=== PATIENT | male | born 1970 | race Caucasian/White ===

== ENCOUNTER → 2018-11-08 | Day surgery (SDC) | payer OTHER ==
[~2018-11-08] MED LIST: FENTANYL CITRATE/PF 100MCG/2 ML INJ ONE; LISINOPRIL10 MG PO; MIDAZOLAM HCL 2 MG/2 ML VIAL ONE; PROPOFOL IV EMULSION 10 MG/ML 50 ML VIAL ONE
--- OUTSIDE RECORDS SUMMARY | 2018-11-08 06:08 | XMS REPORT | Encounter Summary ---
Author Organization Unknown Address [address] [place] [id number] Phone [phone] Reason for Visit Medical Complaint Instructions 1. Influenza due to Influenza virus, type B rapid flu (A+B) Tamiflu 75 mg capsule 2. Elevated blood-pressure reading without diagnosis of hypertension Discussion Note Pt is in NAD; Verbalizes understanding of all instructions with no questions at this time. Patient educational handouts: No information available. Plan of Care Patient Instructions Alternate with Ibuprofen and acetaminophen every 4hrs as needed for body aches/fever Start Tamiflu and take as directed. Take Bromfed for cough as directed. Start over the counter antihistamine for runny nose and watery eyes. Proper hydration and rest. Return to school/work of fever free for 24 hrs. Recommend monitor BP at home and document, bring BP log to PCP for review. Recommend follow a low sodium diet and exercise 30-45 mins/d 3-4 days a week Take medications as prescribed. Return to clinic or f/u with your PCP within 2-3 days if symptoms worsen as discussed. Reminders Provider Appointments None recorded. Lab Rapid Flu (A+B) 10/02/2016 [facility] Referral None recorded. Procedures None recorded. Surgeries None recorded. Imaging None recorded. Medications Name Start Date lisinopril 40 mg tablet Tamiflu 75 mg capsule Take 1 capsule twice a day by oral route as directed for 5 days. zolpidem 10 mg tablet Medications Administered None recorded. Vitals Height Weight BMI Blood Pressure 5 ft 11 in 250 lbs 34.9 138/92 Lab Results Date Name Result Description Value Range Status Rapid Flu (A+B) Influenza a negative Influenza B positive Allergies Name Reaction Severity Onset NKDA Problems None recorded. Procedures Date Name Performed by Removal of Sperm Duct(s) Information not available Knee Arthroscopy/surgery Information not available Vaccine List Vaccine Type influenza, unspecified formulation 04/09/2016 Tdap 07/10/2012 Social History Smoking Status Never Smoker Past Encounters 10/02/2016 Influenza Due to Influenza Virus, Type B; Elevated Blood-pressure Reading without Diagnosis of Hypertension Mary Blackmon [employer]-C: [id number] [facility], [place] [address], Ph. History of Present Illness [id number] Reported By: Patient HPI: Duration: 1 days. Severity: subjective temperature. Context: no tick/insect bites, no recent travel, no new medications, ill contacts. Associated Symptoms: no headache, no rash, no lethargy, fever/chills, muscle aches, cough. Modifying Factors OTC medication; Bromfed and tylenol Review of Systems:ROS as noted in the HPI Review of Systems Basic Reported By: Patient Physical Exam Adult Basic, Adult Female Complete, Adult Male Complete Reported By: Patient Constitutional: General Appearance: healthy-appearing, well-nourished, well-developed. Level of Distress: NAD. Ambulation: ambulating normally Psychiatric: Mental Status: active and alert. Orientation: to time, to place, to person Tns-[id number]-Qdyur-Throat: Ears: no lesions on external ear, no outer ear tenderness, EACs clear, TMs clear. Hearing: no hearing loss. Nose: no lesions on external nose, nares patent, no septal deviation, nasal passages clear, no sinus tenderness, no nasal discharge. Lips, Teeth, and Gums: no mouth or lip ulcers, no bleeding gums, normal dentition. Oropharynx: moist mucous membranes, no erythema, no exudates, tonsils not enlarged Neck: Lymph Nodes: no cervical LAD Lungs: Respiratory effort: no dyspnea, no tachypnea, no use of accessory muscles, no intercostal retractions. Auscultation: breath sounds normal Cardiovascular: Heart Auscultation: RRR, no murmurs Neurologic: Gait and Station: normal gait, normal station
--- OUTSIDE RECORDS SUMMARY | 2018-11-08 06:08 | XMS REPORT | Continuity of Care Document ---
Author Author [facility] Interface Address Unknown Phone Unavailable Problems Problem Status Onset Date Classification Date Reported Comments Source Influenza due to Influenza virus, type B 10/02/2016 Diagnosis 10/02/2016 [facility] Elevated blood-pressure reading without diagnosis of hypertension 10/02/2016 Diagnosis 10/02/2016 [facility] Medications Medication Details Route Status Patient Instructions Ordering Provider Order Date Source Lisinopril 40 MG Oral Tablet lisinopril 40 mg tablet Active [facility] Oseltamivir 75 MG Oral Capsule [Tamiflu] Tamiflu 75 mg capsule Take 1 capsule twice a day by oral route as directed for 5 days. Active [facility] Zolpidem tartrate 10 MG Oral Tablet zolpidem 10 mg tablet Active [facility] Allergies, Adverse Reactions, Alerts Substance Category Reaction Severity Reaction type Status Date Reported Comments Source Immunizations Immunization Date Given Site Status Last Updated Comments Source influenza, unspecified formulation 04/10/2016 completed [facility] Tdap 07/11/2012 completed [facility] Results Order Name Results Value Reference Range Date Interpretation Comments Source Influenza A negative 10/02/2016 [facility] Influenza B positive 10/02/2016 [facility] Vital Signs Vital Sign Value Date Comments Source Diastolic (mm Hg) 92 10/02/2016 [facility] Height 71 10/02/2016 [facility] Systolic (mm Hg) 138 10/02/2016 [facility] Weight 250 10/02/2016 [facility] Encounters Location Location Details Encounter Type Encounter Number Reason For Visit Attending Provider ADM Date DC Date Status Source [place] - [facility] - [id number] Blackmon, [employer]-C: [address] [place] [address], Ph. [id number] Mary Blackmon 10/02/2016 [facility] Procedures Procedure Code Date Perfomer Comments Source Removal of Sperm Duct(s) [facility] Knee Arthroscopy/surgery [facility]
[2018-11-08 08:50] VITALS: BP 115/66
== END | disposition home or self-care (01) ==
LOC: OR 05:59
PROVIDERS: ATTEND Internal Medicine Gastroenterology
DX: Z12.11 Encounter for screening for malignant neoplasm of colon (principal); D12.5 Benign neoplasm of sigmoid colon; K57.30 Diverticulosis of large intestine without perforation or abscess without bleeding; K64.0 First degree hemorrhoids; K64.4 Residual hemorrhoidal skin tags; Z71.3 Dietary counseling and surveillance; E66.9 Obesity, unspecified; I10 Essential (primary) hypertension; Z01.810 Encounter for preprocedural cardiovascular examination; Z68.31 Body mass index [BMI] 31.0-31.9, adult
CPT/HCPCS: 45385; 93005; J2250; J2704